=== PATIENT | female | born 1975 | race Caucasian/White ===

== ENCOUNTER 2017-01-27 17:43 | Outpatient (CLI) | payer BC ==
[2017-01-27] MEDS ORDERED: IOPAMIDOL-300 100 ML VIAL IVP ONE (18:51)
== END 2017-01-27 17:44 | disposition home or self-care (01) ==
DX: R42 Dizziness and giddiness (principal)
CPT/HCPCS: 70470; Q9967

== ENCOUNTER 2017-06-20 11:42 | Emergency (ER) | payer BC ==
[2017-06-20 13:13] LABS: BASOPHILS % (AUTO) 0.6 %; EOSINOPHILS % (AUTO) 0.1 %; HCT - HEMATOCRIT 40.3 % (37.0-47.0); HGB - HEMOGLOBIN 13.9 g/dL (12.0-16.0); LYMPHOCYTES # (AUTO) 1.5 10^3/uL (1.5-3.5); LYMPHOCYTES % (AUTO) 17.3 %; MEAN CORPUSCULAR HEMOGLOBIN 29.7 pg (27.0-31.0); MEAN CORPUSCULAR HGB CONC 34.5 g/dL (32.0-36.0); MEAN CORPUSCULAR VOLUME 86.1 fL (81.0-99.0); MEAN PLATELET VOLUME 8.6 fL (7.9-10.8); MONOCYTES # (AUTO) 0.5 10^3/uL (0.0-1.0); MONOCYTES % (AUTO) 5.5 %; NEUTROPHILS # (AUTO) 6.7 10^3/uL (1.5-6.6); NEUTROPHILS % (AUTO) 76.5 %; NUCLEATED RED BLOOD CELLS AUTO 0.1 /100WBC; RED BLOOD COUNT 4.68 10^6/uL (4.20-5.40); RED CELL DISTRIBUTION WIDTH 13.6 % (12.0-15.0); UNCORRECTED WHITE BLOOD COUNT 8.8 x10^3/uL; WHITE BLOOD COUNT 8.8 x10^3/uL (4.8-10.8)
[2017-06-20 13:28] LABS: ALBUMIN/GLOBULIN RATIO 1.5 (1.0-2.2); BILIRUBIN,TOTAL 0.5 mg/dL (0.2-1.0); CALCIUM 9.4 mg/dL (8.5-10.3); CREATININE 0.7 mg/dL (0.4-1.0); POTASSIUM 3.6 mmol/L (3.5-5.0); TOTAL PROTEIN 7.7 g/dL (6.7-8.2)
[2017-06-20] MEDS ORDERED: LORazepam 0.5 MG TABLET PO STA (15:14)
--- NOTE | 2017-06-20 15:51 | ED Physician Documentation ---
History of Present Illness - History obtained from History obtained from: Patient, Family - History of Present Illness Timing: How many weeks ago (3) <Guilherme May - Last Filed: 06/21/17 06:35> <Lupe Joy - Last Filed: 06/21/17 12:22> - Stated complaint Stated Complaint: MHE - Chief complaint Chief Complaint: MHE - Additonal information Additional information: 3 weeks of rupesh and no sleep for 40+ hours. (Guilherme May) hx from pt sent to ER by PMD to be admitted for mental health she has a hx of depression and bipolar per PMD records she states she feels extremely anxious and depressed, keeps a running tape in her head of all the mistakes she has made and people she has hurt, occasionally has visual hallucinations and has some suicidal ideation basically that it would be better if she fell asleep and never woke up denies SI denies auditory hallucinations also states she has cp an soa which she attributes to anxiety and ruq pain both since at least last night no fever cough leg swelling (Lupe Joy) Review of Systems Constitutional: denies: Fever, Chills Throat: denies: Sore throat Cardiac: reports: Chest pain / pressure Respiratory: reports: Dyspnea. denies: Cough GI: reports: Abdominal Pain (ruq). denies: Nausea, Vomiting Neurologic: denies: Generalized weakness Psychiatric: reports: Depressed, Suicidal, Hallucinations, Anxiety Endocrine: denies: Easy bruising / bleeding Immunocompromised: denies: Immunocompromised <Lupe Joy - Last Filed: 06/21/17 12:22> PD PAST MEDICAL HISTORY <Guilherme May - Last Filed: 06/21/17 06:35> - Social History Does the pt smoke?: No Smoking Status: Never smoker <Lupe Joy - Last Filed: 06/21/17 12:22> - Present Medications Home Medications: Ambulatory Orders Medication Instructions Recorded Confirmed Venlafaxine HCl [Venlafaxine HCl 06/20/17 ER] - Allergies Allergies/Adverse Reactions: Allergies Allergy/AdvReac Type Severity Reaction Status Date / Time No Known Drug Allergies Allergy Verified 06/20/17 11:47 PD ED PE NORMAL - Vitals Vital signs reviewed: Yes - General General: Alert and oriented X 3 - HEENT HEENT: PERRL - Neck Neck: Supple, no meningeal sign - Cardiac Cardiac: RRR - Respiratory Respiratory: No respiratory distress, Clear bilaterally - Abdomen Abdomen: Soft, Other (mild ruq TTP ? murphys (hurts but does not pause breathing )) - Derm Derm: Normal color - Extremities Extremities: No deformity, No edema, No calf tenderness / cord - Neuro Neuro: Alert and oriented X 3, No motor deficit - Psych Psych: Normal mood <Lupe Joy W - Last Filed: 06/21/17 12:22> Results - Rads (name of study) CXR Radiology: See rad report (no acute) abd sono Radiology: See rad report (no gallstones or acute ana maría) <Lupe Joy W - Last Filed: 06/21/17 12:22> - Vitals Vitals: Vital Signs - 24 hr 06/20/17 06/20/17 06/21/17 16:19 17:50 02:35 Temperature 36.3 C L 36.5 C 36.6 C Heart Rate 91 82 79 Respiratory 15 15 16 Rate Blood Pressure 146/104 H 153/41 H 141/77 H O2 Saturation 97 98 98 06/21/17 06:56 Temperature Heart Rate 74 Respiratory 16 Rate Blood Pressure 133/78 H O2 Saturation 99 Oxygen O2 Source Room air - Labs Labs: Laboratory Tests 06/20/17 06/20/17 06/20/17 13:05 13:05 13:05 WBC 8.8 RBC 4.68 Hgb 13.9 Hct 40.3 MCV 86.1 MCH 29.7 MCHC 34.5 RDW 13.6 Plt Count 283 MPV 8.6 Neut # 6.7 H Lymph # 1.5 [place] # 0.5 Eos # 0.0 Baso # 0.0 Absolute Nucleated RBC 0.01 Nucleated RBCs 0.1 Sodium 137 Potassium 3.6 Chloride 101 Carbon Dioxide 25 Anion Gap 11.0 BUN 11 Creatinine 0.7 Estimated GFR (MDRD) 91 Glucose 138 H Calcium 9.4 Total Bilirubin 0.5 AST 24 ALT 27 Alkaline Phosphatase 61 Troponin I Total Protein 7.7 Albumin 4.6 Globulin 3.1 Albumin/Globulin Ratio 1.5 Lipase 32 TSH 1.42 Urine Color Urine Clarity Urine pH Ur Specific [place] Urine Protein Urine Glucose (UA) Urine Ketones Urine Occult Blood Urine Nitrite Urine Bilirubin Urine Urobilinogen Ur Leukocyte Esterase Ur Microscopic Review Urine Culture Comments Urine HCG, Qual Urine Opiates Screen Ur Oxycodone Screen Urine Methadone Screen Ur Propoxyphene Screen Ur Barbiturates Screen Ur Tricyclics Screen Ur Phencyclidine Scrn Ur Amphetamine Screen U Methamphetamines Scrn U Benzodiazepines Scrn Urine Cocaine Screen U Cannabinoids Screen Ethyl Alcohol 06/20/17 06/20/17 06/20/17 14:58 15:30 17:11 WBC RBC Hgb Hct MCV MCH MCHC RDW Plt Count MPV Neut # Lymph # [place] # Eos # Baso # Absolute Nucleated RBC Nucleated RBCs Sodium Potassium Chloride Carbon Dioxide Anion Gap BUN Creatinine Estimated GFR (MDRD) Glucose Calcium Total Bilirubin AST ALT Alkaline Phosphatase Troponin I 0.04 Total Protein Albumin Globulin Albumin/Globulin Ratio Lipase TSH Urine Color LT. YELLOW Urine Clarity CLEAR Urine pH 6.0 Ur Specific [place] <=1.005 Urine Protein NEGATIVE Urine Glucose (UA) NEGATIVE Urine Ketones TRACE Urine Occult Blood NEGATIVE Urine Nitrite NEGATIVE Urine Bilirubin NEGATIVE Urine Urobilinogen 0.2 (NORMAL) Ur Leukocyte Esterase NEGATIVE Ur Microscopic Review NOT INDICATED Urine Culture Comments NOT INDICATED Urine HCG, Qual Urine Opiates Screen NEGATIVE Ur Oxycodone Screen NEGATIVE Urine Methadone Screen NEGATIVE Ur Propoxyphene Screen NEGATIVE Ur Barbiturates Screen NEGATIVE Ur Tricyclics Screen NEGATIVE Ur Phencyclidine Scrn NEGATIVE Ur Amphetamine Screen NEGATIVE U Methamphetamines Scrn NEGATIVE U Benzodiazepines Scrn NEGATIVE Urine Cocaine Screen NEGATIVE U Cannabinoids Screen NEGATIVE Ethyl Alcohol < 5.0 06/20/17 17:11 WBC RBC Hgb Hct MCV MCH MCHC RDW Plt Count MPV Neut # Lymph # [place] # Eos # Baso # Absolute Nucleated RBC Nucleated RBCs Sodium Potassium Chloride Carbon Dioxide Anion Gap BUN Creatinine Estimated GFR (MDRD) Glucose Calcium Total Bilirubin AST ALT Alkaline Phosphatase Troponin I Total Protein Albumin Globulin Albumin/Globulin Ratio Lipase TSH Urine Color Urine Clarity Urine pH Ur Specific [place] <=1.005 Urine Protein Urine Glucose (UA) Urine Ketones Urine Occult Blood Urine Nitrite Urine Bilirubin Urine Urobilinogen Ur Leukocyte Esterase Ur Microscopic Review Urine Culture Comments Urine HCG, Qual NEGATIVE Urine Opiates Screen Ur Oxycodone Screen Urine Methadone Screen Ur Propoxyphene Screen Ur Barbiturates Screen Ur Tricyclics Screen Ur Phencyclidine Scrn Ur Amphetamine Screen U Methamphetamines Scrn U Benzodiazepines Scrn Urine Cocaine Screen U Cannabinoids Screen Ethyl Alcohol PD MEDICAL DECISION MAKING - ED course Complexity details: reviewed old records, reviewed results, re-evaluated patient , considered differential, d/w patient, d/w family <Guilherme May - Last Filed: 06/21/17 06:35> <Lupe Joy - Last Filed: 06/21/17 12:22> - ED course ED course: 41-year-old female with bipolar disorder has had rupesh and she has had no sleep for the past 48 hours. Her care was turned over to me by Dr. Ba at the end of her shift and the patient is awaiting evaluation by the social science manager for inpatient psychiatric treatment that is recommended by the tele-psych provider. Here in the emergency room she is requesting something for sleep and she is given zyprexa 5mg IM and she is able to doze off but this is short lived and she requires a second dose. Her care is turned back over to Dr. Cano at the end of my shift with the anticipation of evaluation by social work for in- patient treatment. The patient does need treatment and she is voluntary. ( Guilherme May) pt medically clear - usual labs + CXR and trop 2/2 chest pain and ruq sono 2/2 ruq pain all fine by the time pt medically clear social work not available requested telepsych eval at 1900 [id number] consult done - awaiting report - per pt and SO telepsych rec inpt tx and will make med rec - advised pt in that case she will board in ER overnight until SW available in AM to assist with placement care turned over to night EMP and i will be back in AM to resume care and placement efforts assumed care again 06/21 0700 telepsych recommended inpt voluntary admit SW Diane aware and working on placement SW placed pt at [facility] - she and insisted on travelling POV not BLS and signed AMA and departed for [facility] (Lupe Joy) Departure <Guilherme May - Last Filed: 06/21/17 06:35> <Lupe Joy - Last Filed: 06/21/17 12:22> - Departure Disposition: 02 Transfer Acute Care Hosp Clinical Impression: Bipolar affective disorder Qualifiers: Active/Remission status: currently active Current bipolar episode type: mixed Current episode severity: severe Psychotic features: without psychotic features Qualified Code(s): F31.63 - Bipolar disorder, current episode mixed, severe, without psychotic features
--- NOTE | 2017-06-20 16:38 | XRAY Preliminary Report ---
Exam: XR Chest 1 View IMPRESSION: Normal single view chest. [facility] SITE ID: [id number]
--- NOTE | 2017-06-20 16:40 | XRAY Report ---
EXAM: CHEST RADIOGRAPHY EXAM DATE: 06/20/2017 04:15 PM. CLINICAL HISTORY: Chest pain and shortness of breath. Anxiety attacks. COMPARISON: Chest radiography from 12/14/2010. TECHNIQUE: 1 view. FINDINGS: Lungs/Pleura: No focal opacities evident. No pleural effusion. No pneumothorax. Mediastinum: Within exam limitations, cardiomediastinal contour is normal. Other: None. IMPRESSION: Normal single view chest. [facility] Referring Provider Line: [phone] SITE ID: [id number]
--- NOTE | 2017-06-20 16:48 | Ultrasound Preliminary Report ---
Exam: US Abdomen Limited IMPRESSION: 1. Limited exam due to patient's inability to hold her breath momentarily during imaging and patient imaging characteristics. 2. Increased liver echotexture suggestive of fatty infiltration. 3. No evidence of cholelithiasis or acute cholecystitis. [facility] SITE ID: [id number]
--- NOTE | 2017-06-20 16:51 | Ultrasound Report ---
EXAM: ABDOMEN ULTRASOUND LIMITED, RUQ EXAM DATE: 06/20/2017 04:23 PM. CLINICAL HISTORY: Right upper quadrant pain. COMPARISON: None. TECHNIQUE: Real-time scanning was performed with static images obtained. FINDINGS: The exam is technically limited due to the patient's inability to hold her breath momentarily during imaging. Liver: Increased echotexture suggestive of fatty infiltration. 15.6 cm. Main portal vein flow: Hepato petal. Gallbladder: Normal. No stones, wall thickening, or sonographic Zavala's sign. Biliary System: CBD measures 5.1 mm. No intrahepatic or extrahepatic ductal dilatation. Other: Right kidney is unremarkable. No hydronephrosis. IMPRESSION: 1. Limited exam due to patient's inability to hold her breath momentarily during imaging and patient imaging characteristics. 2. Increased liver echotexture suggestive of fatty infiltration. 3. No evidence of cholelithiasis or acute cholecystitis. [facility] Referring Provider Line: [phone] SITE ID: [id number]
[2017-06-20] MEDS ORDERED: LORazepam 0.5 MG TABLET ONE (17:24)
[2017-06-20 17:48] LABS: BILIRUBIN,URINE NEGATIVE (NEGATIVE)
[2017-06-20 17:52] LABS: UA CHARGE (STRIP ONLY) YES; UR CULTURE IF IND NOT INDICATED
[2017-06-20 17:53] LABS: HCG UR QUAL NEGATIVE
--- NOTE | 2017-06-20 20:41 | ED Physician Documentation ---
PD HPI MHE - Stated complaint Stated Complaint: MHE - Chief complaint Chief Complaint: MHE - History obtained from History obtained from: Patient, Family - History of Present Illness Primary symptom: Suicidal ideation, Depression, Manic, Anxiety Contributing factors: Family, Work Similar symptoms before: Diagnosis - Additional information Additional information: History of Present Illness: Pt seen via televideo with the help on onsite staff. Pt is a 41 yo female who reports a hx of manic- depressive disorder. Pt presents to the ED, accompanied by her and referred by her outpt provider seeking inpt stabilization. Pt reports a several week period of instability. Reports a recent period of manic like activity. Now over the past 3 days with significantly increased depressive and anxiety sxs. States feels depressed, anxious, helpless and hopeless. Sates she has not been sleeping nor eating appropriately. States she has been experiencing negative racing thoughts, inability to focus. States also having suicidal thoughts, no specific plan however reports that the thoughts are comforting to her. States she had to leave work on Tuesday as she was not functioning. Pts was present during the evaluation. Reports that he feels she has not been doing well over the past few days. States he stayed home today from work as he was concerned about her. States she has not slept in 40+ hours. States she is not focusing, has been zoning out in a zombie like manner. States she has been tearful and reports no specific new trigger. States he is worried about her negative thoughts. On ROS, pt denies AVHs, delusions nor HI. She reports continued SI, no specific plan however thoughts are comforting to her at this time. During the assessment she exhibited significant difficulty communicating her thoughts. With significant blocking. She appeared to be in distress related to her current mental state. She admits she is not functioning, not able to currently care for herself nor ADLs. She presents as a danger to herself due to her ongoing suicidal thoughts. She requires inpt psychiatric admission for safety, stabilization and treatment. Pt is voluntary for inpt treatment. Inpt prior admission Outpt compliance with medications Rxed by her PCP SAttempts: denies Medical History: see chart Medications & Freq: see chart Allergies: see chart Substance Use Hx: denies Forensic Hx: not reported Access to weapons/guns: denies Family Psychiatric hx: unknown Mental Status Exam: Appearance and attire: Dressed in hospital attire Attitude and behavior: cooperative Affect and mood: depressed / constricted Association and thought processes: + blocking Thought content: denies delusions. Denies HI. + SI Perceptual: Denies AVHs Sensorium, memory, and orientation AxOx3 Insight and judgment: poor impaired Diagnosis: Unspecified Bipolar And Related Disorder Recommendations: Pt requires acute inpt psychiatric admission For safety, stabilization and treatment Pt is voluntary for inpt treatment. PD PAST MEDICAL HISTORY - Present Medications Home Medications: Ambulatory Orders Medication Instructions Recorded Confirmed Venlafaxine HCl [Venlafaxine HCl 06/20/17 ER] - Allergies Allergies/Adverse Reactions: Allergies Allergy/AdvReac Type Severity Reaction Status Date / Time No Known Drug Allergies Allergy Verified 06/20/17 11:47 - Social History Does the pt smoke?: No Smoking Status: Never smoker Results - Vitals Vitals: Vital Signs - 24 hr 06/20/17 06/20/17 06/20/17 11:48 16:19 17:50 Temperature 36.0 C L 36.3 C L 36.5 C Heart Rate 80 91 82 Respiratory 18 15 15 Rate Blood Pressure 147/94 H 146/104 H 153/41 H O2 Saturation 99 97 98 Oxygen O2 Source Room air - Labs Labs: Laboratory Tests 06/20/17 06/20/17 06/20/17 13:05 13:05 13:05 WBC 8.8 RBC 4.68 Hgb 13.9 Hct 40.3 MCV 86.1 MCH 29.7 MCHC 34.5 RDW 13.6 Plt Count 283 MPV 8.6 Neut # 6.7 H Lymph # 1.5 [place] # 0.5 Eos # 0.0 Baso # 0.0 Absolute Nucleated RBC 0.01 Nucleated RBCs 0.1 Sodium 137 Potassium 3.6 Chloride 101 Carbon Dioxide 25 Anion Gap 11.0 BUN 11 Creatinine 0.7 Estimated GFR (MDRD) 91 Glucose 138 H Calcium 9.4 Total Bilirubin 0.5 AST 24 ALT 27 Alkaline Phosphatase 61 Troponin I Total Protein 7.7 Albumin 4.6 Globulin 3.1 Albumin/Globulin Ratio 1.5 Lipase 32 TSH 1.42 Urine Color Urine Clarity Urine pH Ur Specific [place] Urine Protein Urine Glucose (UA) Urine Ketones Urine Occult Blood Urine Nitrite Urine Bilirubin Urine Urobilinogen Ur Leukocyte Esterase Ur Microscopic Review Urine Culture Comments Urine HCG, Qual Urine Opiates Screen Ur Oxycodone Screen Urine Methadone Screen Ur Propoxyphene Screen Ur Barbiturates Screen Ur Tricyclics Screen Ur Phencyclidine Scrn Ur Amphetamine Screen U Methamphetamines Scrn U Benzodiazepines Scrn Urine Cocaine Screen U Cannabinoids Screen Ethyl Alcohol 06/20/17 06/20/17 06/20/17 14:58 15:30 17:11 WBC RBC Hgb Hct MCV MCH MCHC RDW Plt Count MPV Neut # Lymph # [place] # Eos # Baso # Absolute Nucleated RBC Nucleated RBCs Sodium Potassium Chloride Carbon Dioxide Anion Gap BUN Creatinine Estimated GFR (MDRD) Glucose Calcium Total Bilirubin AST ALT Alkaline Phosphatase Troponin I 0.04 Total Protein Albumin Globulin Albumin/Globulin Ratio Lipase TSH Urine Color LT. YELLOW Urine Clarity CLEAR Urine pH 6.0 Ur Specific [place] <=1.005 Urine Protein NEGATIVE Urine Glucose (UA) NEGATIVE Urine Ketones TRACE Urine Occult Blood NEGATIVE Urine Nitrite NEGATIVE Urine Bilirubin NEGATIVE Urine Urobilinogen 0.2 (NORMAL) Ur Leukocyte Esterase NEGATIVE Ur Microscopic Review NOT INDICATED Urine Culture Comments NOT INDICATED Urine HCG, Qual Urine Opiates Screen NEGATIVE Ur Oxycodone Screen NEGATIVE Urine Methadone Screen NEGATIVE Ur Propoxyphene Screen NEGATIVE Ur Barbiturates Screen NEGATIVE Ur Tricyclics Screen NEGATIVE Ur Phencyclidine Scrn NEGATIVE Ur Amphetamine Screen NEGATIVE U Methamphetamines Scrn NEGATIVE U Benzodiazepines Scrn NEGATIVE Urine Cocaine Screen NEGATIVE U Cannabinoids Screen NEGATIVE Ethyl Alcohol < 5.0 06/20/17 17:11 WBC RBC Hgb Hct MCV MCH MCHC RDW Plt Count MPV Neut # Lymph # [place] # Eos # Baso # Absolute Nucleated RBC Nucleated RBCs Sodium Potassium Chloride Carbon Dioxide Anion Gap BUN Creatinine Estimated GFR (MDRD) Glucose Calcium Total Bilirubin AST ALT Alkaline Phosphatase Troponin I Total Protein Albumin Globulin Albumin/Globulin Ratio Lipase TSH Urine Color Urine Clarity Urine pH Ur Specific [place] <=1.005 Urine Protein Urine Glucose (UA) Urine Ketones Urine Occult Blood Urine Nitrite Urine Bilirubin Urine Urobilinogen Ur Leukocyte Esterase Ur Microscopic Review Urine Culture Comments Urine HCG, Qual NEGATIVE Urine Opiates Screen Ur Oxycodone Screen Urine Methadone Screen Ur Propoxyphene Screen Ur Barbiturates Screen Ur Tricyclics Screen Ur Phencyclidine Scrn Ur Amphetamine Screen U Methamphetamines Scrn U Benzodiazepines Scrn Urine Cocaine Screen U Cannabinoids Screen Ethyl Alcohol
[2017-06-20] MEDS ORDERED: OLANZapine 10 MG VIAL IM STA (23:32)
[2017-06-21] MEDS ORDERED: OLANZapine 10 MG VIAL IM STA (02:45)
[2017-06-21] MEDS ORDERED: OLANZapine 10 MG VIAL IM ONE ×2 (02:49)
[2017-06-21 12:39] VITALS: BP 136/64
== END 2017-06-21 12:00 | disposition short-term general hospital (02) ==
LOC: ED 11:42
DX: F31.63 Bipolar disorder, current episode mixed, severe, without psychotic features (principal); R45.851 Suicidal ideations
CPT/HCPCS: 36415; 71010; 76705; 80053; 80306; 80320; 81003; 81025; 83690; 84443; 84484; 85025; 96372; 99284; A9270; G0425; 81001; 87086; 99283

== ENCOUNTER 2017-07-28 13:27 | Outpatient (CLI) | payer BC ==
--- NOTE | 2017-07-29 16:18 | Mammography Report ---
DIGITAL BILATERAL SCREENING MAMMOGRAM: 07/28/2017 COMPARISON: Mammogram of 06/14/2014. INDICATION: Screening mammography. TECHNIQUE: Routine CC and MLO projections were obtained of the breasts. FINDINGS: Parenchymal tissue within both breasts is heterogeneously dense, which may lower the sensi tivity of mammography; however, there are no dominant masses, suspicious microcalcifications, or seco ndary signs of malignancy. In comparison to the previous studies, there are no significant changes. ASSESSMENT: NO MAMMOGRAPHIC EVIDENCE OF MALIGNANCY. NO SIGNIFICANT INTERVAL CHANGES. RECOMMENDATION: Screening mammography is recommended annually. BIRADS category 1 - negative. STANDARD QUALIFYING STATEMENTS 1. This examination was reviewed with the aid of Computed-Aided Detection (CAD). 2. A negative or benign imaging report should not delay biopsy if clinically suspicious findings are present. Consider surgical consultation if warranted. More than 5% of cancers are not identified by i maging. 3. Dense breasts may obscure an underlying neoplasm. JOB #: [id number] EXT JOB #:[id number]
== END 2017-07-28 13:28 | disposition home or self-care (01) ==
LOC: DI 13:27
PROVIDERS: ATTEND Physician Assistant Medical
DX: Z12.31 Encounter for screening mammogram for malignant neoplasm of breast (principal)
CPT/HCPCS: 77067

== ENCOUNTER 2017-08-18 07:01 | Outpatient (CLI) | payer BC ==
[2017-08-18 07:38] LABS: BASOPHILS % (AUTO) 0.2 %; EOSINOPHILS # (AUTO) 0.1 10^3/uL (0.0-0.7); EOSINOPHILS % (AUTO) 2.7 %; HCT - HEMATOCRIT 38.9 % (37.0-47.0); HGB - HEMOGLOBIN 13.5 g/dL (12.0-16.0); LYMPHOCYTES # (AUTO) 1.4 10^3/uL (1.5-3.5); LYMPHOCYTES % (AUTO) 28.7 %; MEAN CORPUSCULAR HEMOGLOBIN 30.3 pg (27.0-31.0); MEAN CORPUSCULAR HGB CONC 34.8 g/dL (32.0-36.0); MEAN CORPUSCULAR VOLUME 87.2 fL (81.0-99.0); MEAN PLATELET VOLUME 8.5 fL (7.9-10.8); MONOCYTES # (AUTO) 0.4 10^3/uL (0.0-1.0); MONOCYTES % (AUTO) 8.1 %; NEUTROPHILS # (AUTO) 2.9 10^3/uL (1.5-6.6); NEUTROPHILS % (AUTO) 60.3 %; RED BLOOD COUNT 4.46 10^6/uL (4.20-5.40); RED CELL DISTRIBUTION WIDTH 13.1 % (12.0-15.0); UNCORRECTED WHITE BLOOD COUNT 4.8 x10^3/uL; WHITE BLOOD COUNT 4.8 x10^3/uL (4.8-10.8)
[2017-08-18 07:44] LABS: ALBUMIN/GLOBULIN RATIO 1.3 (1.0-2.2); BILIRUBIN,TOTAL 0.3 mg/dL (0.2-1.0); BUN - BLOOD UREA NITROGEN 16 mg/dL (6-20); CARBON DIOXIDE - CO2 26 mmol/L (21-32); CHLORIDE 100 mmol/L (101-111); CHOL/HDL RATIO 4.4 (<4.4); CHOLESTEROL 169 mg/dL; CREATININE 0.8 mg/dL (0.4-1.0); GFR - MDRD 78 (>89); GLUCOSE 108 mg/dL (70-100); HDL CHOLESTEROL 38 mg/dL; LDL/HDL RATIO 2.9 (<4.4); POTASSIUM 4.2 mmol/L (3.5-5.0); SODIUM 136 mmol/L (135-145); TOTAL PROTEIN 7.2 g/dL (6.7-8.2); TRIGLYCERIDES 105 mg/dL; VLDL CHOLESTEROL 21 mg/dL
== END 2017-08-18 07:02 | disposition home or self-care (01) ==
LOC: LAB 07:01
PROVIDERS: ATTEND Physician Assistant Medical
DX: Z00.00 Encounter for general adult medical examination without abnormal findings (principal); F31.60 Bipolar disorder, current episode mixed, unspecified; Z79.899 Other long term (current) drug therapy
CPT/HCPCS: 36415; 80053; 80061; 84443; 85025

== ENCOUNTER 2018-02-20 06:46 | Outpatient (CLI) | payer BC ==
[2018-02-20 07:33] LABS: ALBUMIN 4.3 g/dL (3.2-5.5); ALBUMIN/GLOBULIN RATIO 1.4 (1.0-2.2); ALKALINE PHOSPHATASE 59 IU/L (42-121); ALT ALANINE AMINOTRANSFERASE 26 IU/L (10-60); AST ASPARTATE AMINOTRANSFERASE 24 IU/L (10-42); BILIRUBIN,TOTAL 1.1 mg/dL (0.2-1.0); BUN - BLOOD UREA NITROGEN 16 mg/dL (6-20); CALCIUM 9.1 mg/dL (8.5-10.3); CARBON DIOXIDE - CO2 26 mmol/L (21-32); CHLORIDE 102 mmol/L (101-111); CHOL/HDL RATIO 3.9 (<4.4); CHOLESTEROL 229 mg/dL; CREATININE 0.7 mg/dL (0.4-1.0); GFR - MDRD 91 (>89); GLUCOSE 114 mg/dL (70-100); HDL CHOLESTEROL 58 mg/dL; LDL CHOLESTEROL,CALCULATED 156 mg/dL; LDL/HDL RATIO 2.7 (<4.4); SODIUM 137 mmol/L (135-145); TOTAL PROTEIN 7.3 g/dL (6.7-8.2); VLDL CHOLESTEROL 15 mg/dL
== END 2018-02-20 06:47 | disposition home or self-care (01) ==
LOC: LAB 06:46
PROVIDERS: ATTEND Physician Assistant Medical
DX: F31.60 Bipolar disorder, current episode mixed, unspecified (principal); Z79.899 Other long term (current) drug therapy
CPT/HCPCS: 36415; 80053; 80061; 80299; 81599; 83721

== ENCOUNTER 2018-05-06 13:36 | Emergency (ER) | payer BC ==
[2018-05-06] MEDS ORDERED: BUFFERED LIDOCAINE 10 ML SYRINGE SUBQ STA (13:42)
[2018-05-06] MEDS ORDERED: TETANUS/DIPHTHERIA/PERTUSSIS 0.5 ML SYRINGE IM ONE (13:42)
[2018-05-06 13:43] VITALS: BP 130/84
--- NOTE | 2018-05-06 13:45 | ED Physician Documentation ---
PD HPI UPPER EXT INJURY - Stated complaint Stated Complaint: L FINGERS LAC - Chief complaint Chief Complaint: Laceration - History obtained from History obtained from: Patient - History of Present Illness Location: Left (Right-handed woman with tetanus greater than 5 years ago cut her left fingers, each 1 of them, by contacting a weedeater while working just prior to arrival at home.) Review of Systems Constitutional: denies: Fever, Chills Cardiac: denies: Chest pain / pressure, Palpitations Respiratory: denies: Dyspnea, Cough GI: denies: Abdominal Pain PD PAST MEDICAL HISTORY - Present Medications Home Medications: Ambulatory Orders Medication Instructions Recorded Confirmed Cephalexin [Keflex] 500 mg PO QID #20 capsule 05/06/18 HYDROcod/ACETAM 5/325 [[place] 5/325] 1 - 2 ea PO Q6H PRN #15 tablet 05/06/18 QUEtiapine [SEROquel] 150 mg ORAL BID 05/06/18 05/06/18 - Allergies Allergies/Adverse Reactions: Allergies Allergy/AdvReac Type Severity Reaction Status Date / Time No Known Drug Allergies Allergy Verified 05/06/18 13:43 - Social History Does the pt smoke?: No Smoking Status: Never smoker PD ED PE NORMAL - Vitals Vital signs reviewed: Yes - General General: Alert and oriented X 3, No acute distress - Extremities Extremities: Other (Left hand: She has lacerations of each of the 5 digits, on the thumb it is on the radial side of the palmar surface just proximal to the interphalangeal joint 1 cm, NVI at the tip. On the second through fourth digits she has approximate 1 cm lacerations of each of the digits at the level of the mid phalanx on the flexor side. NVI at all the tips.) - Neuro Neuro: Alert and oriented X 3, Normal speech - Psych Psych: Normal mood, Normal affect Results - Vitals Vitals: Vital Signs - 24 hr 05/06/18 13:40 Temperature 35.5 C L Heart Rate 106 H Respiratory 18 Rate Blood Pressure 130/84 H O2 Saturation 98 Oxygen O2 Source Room air Procedures - Laceration (location) Left hand Length in cm: 8 Wound type: Other (She had stellate lacerations of each of the 5 digits on the palmar surface, flexor tendon function was intact tested individually in each.) Anesthesia: Lidocaine 1%, With bicarb Wound Preparation: Hibiclens, Irrigated copiously NS Skin layer closure: Nylon, Interrupted, Size #-0 - enter number (4-0), Sutures - enter # (5 sutures in the thumb, 5 sutures in the Second finger, 7 sutures in the third finger, 4 sutures in the ring finger, 2 sutures in the pinky.) Other: Tetanus booster given Complexity: Simple PD MEDICAL DECISION MAKING - Sepsis Event Vital Signs: Vital Signs - 24 hr 05/06/18 13:40 Temperature 35.5 C L Heart Rate 106 H Respiratory 18 Rate Blood Pressure 130/84 H O2 Saturation 98 Oxygen O2 Source Room air Departure - Departure Disposition: Home, Self Care Clinical Impression: Laceration Condition: Good Record reviewed to determine appropriate education?: Yes Instructions: ED Laceration Hand Prescriptions: Cephalexin [Keflex] 500 mg PO QID #20 capsule HYDROcod/ACETAM 5/325 [[place] 5/325] 1 - 2 ea PO Q6H PRN #15 tablet PRN Reason: Pain Comments: Come back for any signs of infection which would include: Redness, swelling, drainage, increased pain, or fevers. Follow-up with your physician in 14 days for suture removal. Your blood pressure was elevated today on check into the emergency department. This does not mean that you have hypertension, it is a common phenomenon to come to the emergency department and have elevated blood pressure. I recommend that you see your primary care physician within the week to have it rechecked when you are feeling better.
[2018-05-06] MEDS ORDERED: BACITRACIN OINT TOP ONE (14:34)
== END 2018-05-06 14:50 | disposition home or self-care (01) ==
LOC: ED 13:36
DX: S61.211A Laceration without foreign body of left index finger without damage to nail, initial encounter (principal); S61.213A Laceration without foreign body of left middle finger without damage to nail, initial encounter; S61.215A Laceration without foreign body of left ring finger without damage to nail, initial encounter; S61.217A Laceration without foreign body of left little finger without damage to nail, initial encounter; S61.012A Laceration without foreign body of left thumb without damage to nail, initial encounter; R03.0 Elevated blood-pressure reading, without diagnosis of hypertension; Z23 Encounter for immunization; W29.3XXA Contact with powered garden and outdoor hand tools and machinery, initial encounter; Y93.89 Activity, other specified
CPT/HCPCS: 12004; 90471; 90715; 99283; A9270

== ENCOUNTER 2018-06-22 08:38 | Outpatient (CLI) | payer BC ==
[2018-06-22 11:05] LABS: LITHIUM 0.69 mmol/L
== END 2018-06-22 08:39 | disposition home or self-care (01) ==
LOC: LAB 08:38
PROVIDERS: ATTEND Psychiatry & Neurology Psychiatry
DX: Z51.81 Encounter for therapeutic drug level monitoring (principal)
CPT/HCPCS: 36415; 80178; 84443

== ENCOUNTER 2018-08-15 08:07 | Outpatient (CLI) | payer BC ==
[2018-08-15 09:05] LABS: BASOPHILS # (AUTO) 0.1 10^3/uL (0.0-0.1); BASOPHILS % (AUTO) 0.6 %; EOSINOPHILS # (AUTO) 1.1 10^3/uL (0.0-0.7); EOSINOPHILS % (AUTO) 12.5 %; LYMPHOCYTES # (AUTO) 1.9 10^3/uL (1.5-3.5); LYMPHOCYTES % (AUTO) 22.5 %; MEAN CORPUSCULAR HEMOGLOBIN 31.2 pg (27.0-31.0); MEAN CORPUSCULAR HGB CONC 35.4 g/dL (32.0-36.0); MEAN CORPUSCULAR VOLUME 87.9 fL (81.0-99.0); MEAN PLATELET VOLUME 8.7 fL (7.9-10.8); MONOCYTES # (AUTO) 0.4 10^3/uL (0.0-1.0); MONOCYTES % (AUTO) 5.2 %; NEUTROPHILS # (AUTO) 5.1 10^3/uL (1.5-6.6); NEUTROPHILS % (AUTO) 59.2 %; PLT - PLATELET COUNT 366 10^3/uL (130-450); RED BLOOD COUNT 4.16 10^6/uL (4.20-5.40); RED CELL DISTRIBUTION WIDTH 15.2 % (12.0-15.0); WHITE BLOOD COUNT 8.6 x10^3/uL (4.8-10.8)
[2018-08-15 09:25] LABS: ALBUMIN/GLOBULIN RATIO 1.3 (1.0-2.2); ALKALINE PHOSPHATASE 61 IU/L (42-121); ALT ALANINE AMINOTRANSFERASE 17 IU/L (10-60); AST ASPARTATE AMINOTRANSFERASE 19 IU/L (10-42); BUN - BLOOD UREA NITROGEN 18 mg/dL (6-20); CARBON DIOXIDE - CO2 26 mmol/L (21-32); CHLORIDE 108 mmol/L (101-111); CHOL/HDL RATIO 3.4 (<4.4); CHOLESTEROL 170 mg/dL; CREATININE 0.7 mg/dL (0.4-1.0); GFR - MDRD 91 (>89); GLUCOSE 105 mg/dL (70-100); HDL CHOLESTEROL 50 mg/dL; LDL CHOLESTEROL,CALCULATED 108 mg/dL; LDL/HDL RATIO 2.2 (<4.4); SODIUM 140 mmol/L (135-145); VLDL CHOLESTEROL 12 mg/dL
[2018-08-15 09:56] LABS: LITHIUM 0.72 mmol/L
[2018-08-15 12:57] LABS: HB2 TOTAL 13.5 g/dL; HEMOGLOBIN A1C 0.34 g/dL; HEMOGLOBIN A1C % 4.5 % (4.6-6.2)
== END 2018-08-15 08:08 | disposition home or self-care (01) ==
LOC: LAB 08:07
PROVIDERS: ATTEND Physician Assistant Medical
DX: Z00.00 Encounter for general adult medical examination without abnormal findings (principal); R73.9 Hyperglycemia, unspecified; Z79.899 Other long term (current) drug therapy; E78.2 Mixed hyperlipidemia; F31.63 Bipolar disorder, current episode mixed, severe, without psychotic features; Z51.81 Encounter for therapeutic drug level monitoring
CPT/HCPCS: 36415; 80053; 80061; 80178; 83036; 83721; 84443; 85025

== ENCOUNTER 2018-11-27 07:27 | Outpatient (CLI) | payer BC ==
[2018-11-27 08:10] LABS: HB2 TOTAL 14.2 g/dL; HEMOGLOBIN A1C 0.3 g/dL; HEMOGLOBIN A1C % 4.1 % (4.6-6.2)
== END 2018-11-27 07:28 ==
LOC: LAB 07:27
PROVIDERS: ATTEND Physician Assistant Medical
DX: R73.9 Hyperglycemia, unspecified (principal); Z79.899 Other long term (current) drug therapy
CPT/HCPCS: 36415; 82947; 83036

== ENCOUNTER 2019-11-02 07:41 | Outpatient (CLI) | payer BC ==
[2019-11-02 08:12] LABS: CREATININE 0.6 mg/dL (0.4-1.0)
[2019-11-02 09:07] LABS: LITHIUM 1.02 mmol/L
[2019-11-02 09:09] LABS: HB2 TOTAL 13.6 g/dL; HEMOGLOBIN A1C 0.48 g/dL; HEMOGLOBIN A1C % 5.4 % (4.6-6.2)
== END 2019-11-02 07:42 | disposition home or self-care (01) ==
LOC: LAB 07:41
PROVIDERS: ATTEND Psychiatry & Neurology Psychiatry
DX: F31.78 Bipolar disorder, in full remission, most recent episode mixed (principal); Z51.81 Encounter for therapeutic drug level monitoring; Z79.899 Other long term (current) drug therapy; E16.2 Hypoglycemia, unspecified
CPT/HCPCS: 36415; 80048; 80178; 83036; 84443

== ENCOUNTER 2020-11-20 07:50 | Outpatient (CLI) | payer BC ==
[2020-11-20 08:33] LABS: ALBUMIN 4.1 g/dL (3.2-5.5); ALBUMIN/GLOBULIN RATIO 1.4 (1.0-2.2); ALKALINE PHOSPHATASE 55 IU/L (42-121); ALT ALANINE AMINOTRANSFERASE 32 IU/L (10-60); AST ASPARTATE AMINOTRANSFERASE 19 IU/L (10-42); BILIRUBIN,TOTAL 0.7 mg/dL (0.2-1.0); BUN - BLOOD UREA NITROGEN 12 mg/dL (6-20); CALCIUM 9.1 mg/dL (8.5-10.3); CARBON DIOXIDE - CO2 26 mmol/L (21-32); CHLORIDE 105 mmol/L (101-111); CHOL/HDL RATIO 3.8 (<4.4); CHOLESTEROL 199 mg/dL; CREATININE 0.7 mg/dL (0.4-1.0); GLUCOSE 115 mg/dL (70-100); HDL CHOLESTEROL 53 mg/dL; LDL CHOLESTEROL,CALCULATED 118 mg/dL; LDL/HDL RATIO 2.2 (<4.4); TOTAL PROTEIN 7.1 g/dL (6.7-8.2); VLDL CHOLESTEROL 28 mg/dL
[2020-11-20 09:09] LABS: LITHIUM 0.64 mmol/L
[2020-11-20 14:50] LABS: HEMOGLOBIN A1c% 5.5 % (4.27-6.07)
== END 2020-11-20 07:51 | disposition home or self-care (01) ==
LOC: LAB 07:50
PROVIDERS: ATTEND Psychiatry & Neurology Psychiatry
DX: E78.00 Pure hypercholesterolemia, unspecified (principal); F31.78 Bipolar disorder, in full remission, most recent episode mixed; Z51.81 Encounter for therapeutic drug level monitoring; Z79.899 Other long term (current) drug therapy
CPT/HCPCS: 36415; 80053; 80061; 80178; 83036; 83721; 84443

== ENCOUNTER 2022-06-27 10:18 | Emergency (ER) | payer BC ==
[2022-06-27 10:51] LABS: BASOPHILS % (AUTO) 0.3 %; EOSINOPHILS # (AUTO) 0.2 10^3/uL (0.0-0.7); EOSINOPHILS % (AUTO) 3.3 %; HCT - HEMATOCRIT 40.9 % (37.0-47.0); HGB - HEMOGLOBIN 13.8 g/dL (12.0-16.0); LYMPHOCYTES # (AUTO) 1.8 10^3/uL (1.5-3.5); LYMPHOCYTES % (AUTO) 26.2 %; MEAN CORPUSCULAR HEMOGLOBIN 29.5 pg (27.0-31.0); MEAN CORPUSCULAR HGB CONC 33.7 g/dL (32.0-36.0); MEAN CORPUSCULAR VOLUME 87.4 fL (81.0-99.0); MEAN PLATELET VOLUME 10.4 fL (7.9-10.8); MONOCYTES # (AUTO) 0.5 10^3/uL (0.0-1.0); MONOCYTES % (AUTO) 6.7 %; NEUTROPHILS # (AUTO) 4.2 10^3/uL (1.5-6.6); NEUTROPHILS % (AUTO) 63.2 %; PLT - PLATELET COUNT 307 10^3/uL (130-450); RED BLOOD COUNT 4.68 10^6/uL (4.20-5.40); RED CELL DISTRIBUTION WIDTH 12.9 % (12.0-15.0); WHITE BLOOD COUNT 6.7 x10^3/uL (4.8-10.8)
[2022-06-27 11:02] LABS: ALBUMIN/GLOBULIN RATIO 1.1 (1.0-2.2); BILIRUBIN,TOTAL 0.6 mg/dL (0.2-1.0); CALCIUM 9.6 mg/dL (8.5-10.3); CREATININE 0.7 mg/dL (0.4-1.0); POTASSIUM 4.1 mmol/L (3.5-5.0); TOTAL PROTEIN 7.6 g/dL (6.7-8.2)
[2022-06-27] MEDS ORDERED: CYCLOBENZAPRINE 10 MG TABLET PO STA (13:24)
--- NOTE | 2022-06-27 13:25 | ED Physician Documentation ---
PD HPI ABD PAIN - Stated complaint Stated Complaint: FEMALE - Chief complaint Chief Complaint: Abd Pain - History obtained from History obtained from: Patient, Family - Additional information Additional information: Relatively healthy 46-year-old woman with IUD in place presents with 2 days of back hip and hamstring pain only really notable when walking. If she is at rest pain is insignificant absent. When she tries to walk she feels like she has to walk bent over and basically has tightness in the hips and hamstrings if she tries to walk upright. Ibuprofen has been helpful. She denies vaginal bleeding or discharge, urinary complaints, changes in bowel movements, fevers or chills, nausea or vomiting. Review of Systems Constitutional: denies: Fever, Chills Ears: reports: Reviewed and negative Nose: reports: Reviewed and negative Throat: reports: Reviewed and negative Cardiac: reports: Reviewed and negative PD PAST MEDICAL HISTORY - Past Medical History Past Medical History: Yes - Past Surgical History Past Surgical History: No - Present Medications Home Medications: Ambulatory Orders Medication Instructions Recorded Confirmed HYDROcod/ACETAM 5/325 [[place] 5/325] 1 - 2 ea PO Q6H PRN #15 tablet 05/06/18 QUEtiapine [SEROquel] 150 mg ORAL BID 05/06/18 05/06/18 cephALEXin [Keflex] 500 mg PO QID #20 capsule 05/06/18 - Allergies Allergies/Adverse Reactions: Allergies Allergy/AdvReac Type Severity Reaction Status Date / Time No Known Drug Allergies Allergy Verified 06/27/22 10:29 - Social History Does the pt smoke?: No Smoking Status: Never smoker Does the pt drink ETOH?: No Does the pt have substance abuse?: No - Immunizations Immunizations are current?: Yes - POLST Patient has POLST: No PD ED PE NORMAL - Vitals Vital signs reviewed: Yes - General General: Alert and oriented X 3, No acute distress, Other (She is comfortable at rest. When she tries to walk she kind of walks hunched over.) - Abdomen Abdomen: Normal bowel sounds, Soft, Other (She may be just has a touch of right pelvic tenderness, very unimpressive.) - Back Back: No CVA TTP, No spinal TTP - Derm Derm: Normal color, Warm and dry - Extremities Extremities: No deformity (The right hamstring is tender and she has pain in the right hamstring with straight leg raise testing.), Other (The patient has equal and normal Achilles and patellar reflexes bilaterally. Normal sensation in all areas of the legs. Patient denies saddle anesthesia. Normal strength in flexion-extension at the ankles, knees, and flexion of the hips.) - Neuro Neuro: Alert and oriented X 3, Normal speech Eye Opening: Spontaneous Motor: Obeys Commands Verbal: Oriented GCS Score: 15 - Psych Psych: Normal mood, Normal affect Results - Vitals Vitals: Vital Signs - 24 hr 06/27/22 06/27/22 06/27/22 10:29 10:34 12:34 Temperature 36.6 C 36.6 C 36.7 C Heart Rate 65 65 62 Respiratory 18 18 18 Rate Blood Pressure 136/96 H 136/96 H 138/89 H O2 Saturation 100 100 99 06/27/22 14:00 Temperature Heart Rate 60 Respiratory 16 Rate Blood Pressure 130/80 O2 Saturation 100 Oxygen O2 Source Room air - Labs Labs: Laboratory Tests 06/27/22 06/27/22 06/27/22 10:46 10:46 10:55 WBC 6.7 RBC 4.68 Hgb 13.8 Hct 40.9 MCV 87.4 MCH 29.5 MCHC 33.7 RDW 12.9 Plt Count 307 MPV 10.4 Neut # (Auto) 4.2 Lymph # (Auto) 1.8 [place] # (Auto) 0.5 Eos # (Auto) 0.2 Baso # (Auto) 0.0 Absolute Nucleated RBC 0.00 Nucleated RBC % 0.0 Sodium 137 Potassium 4.1 Chloride 104 Carbon Dioxide 25 Anion Gap 8.0 BUN 17 Creatinine 0.7 Estimated GFR (MDRD) 89 Glucose 122 H Calcium 9.6 Total Bilirubin 0.6 AST 16 ALT 17 Alkaline Phosphatase 55 Total Protein 7.6 Albumin 4.0 Globulin 3.6 Albumin/Globulin Ratio 1.1 Lipase 31 Urine Color YELLOW Urine Clarity CLEAR Urine pH 7.5 Ur Specific Lafe 1.015 Urine Protein NEGATIVE Urine Glucose (UA) NEGATIVE Urine Ketones NEGATIVE Urine Occult Blood NEGATIVE Urine Nitrite NEGATIVE Urine Bilirubin NEGATIVE Urine Urobilinogen 0.2 (NORMAL) Ur Leukocyte Esterase NEGATIVE Ur Microscopic Review NOT INDICATED Urine Culture Comments NOT INDICATED Urine HCG, Qual NEGATIVE PD MEDICAL DECISION MAKING - ED course ED course: She presents with pelvic and hamstring pain that could be muscular, but there is also a pelvic component. She has a benign exam otherwise and is not and has normal blood work but with findings of bilateral ovarian cysts on ultrasound which could be causative. She declined Prescription pain medication. Understands the need for follow-up ultrasound. Departure - Departure Disposition: 01 Home, Self Care Clinical Impression: Pelvic pain in female Cyst of ovary Qualifiers: Laterality: bilateral Qualified Code(s): N83.201 - Unspecified ovarian cyst, right side Condition: Good Record reviewed to determine appropriate education?: Yes Instructions: ED Cyst Ovarian Comments: As discussed, it seems likely that the source of your pain causing you to feel like you need to hunch over while you walk is bilateral ovarian cysts. Blood work, urinalysis and test were all normal/negative. Some of the cysts, especially on the left were fairly large and you should probably have a repeat ultrasound to document resolution in about 6 weeks. This can be organized through your primary care physician or our women's clinic, the phone number is on this form. Return for new or worsening symptoms. Tylenol/ibuprofen as needed for pain. Discharge Date/Time: 06/27/22 14:38
[2022-06-27 13:37] LABS: BILIRUBIN,URINE NEGATIVE (NEGATIVE); GLUCOSE, URINE (UA) NEGATIVE (NEGATIVE); KETONES,URINE (UA) NEGATIVE (NEGATIVE); LEUKOCYTE ESTERASE, URINE NEGATIVE (NEGATIVE); NITRITE,URINE NEGATIVE (NEGATIVE); OCCULT BLOOD,URINE NEGATIVE (NEGATIVE); PH,URINE 7.5 PH (5.0-7.5); PROTEIN,URINE NEGATIVE (NEGATIVE); UROBILINOGEN,URINE 0.2 (NORMAL) E.U./dL (NORMAL)
[2022-06-27 13:41] LABS: HCG UR QUAL NEGATIVE
[2022-06-27 13:42] LABS: CLARITY,URINE CLEAR (CLEAR)
[2022-06-27 14:12] VITALS: BP 130/80
--- NOTE | 2022-06-27 14:31 | Ultrasound Report ---
PROCEDURE: Pelvic w/Transvag+Doppler Comp INDICATIONS: pelvic pain TECHNIQUE: Real-time scanning was performed of the pelvic organs, with image documentation. Additional endovagi nal scanning was necessary due to incomplete visualization of the adnexal and endometrial structures by transabdominal scanning. Doppler interrogation was performed of the ovaries bilaterally. COMPARISON: None. FINDINGS: No pathologic free abdominal or pelvic fluid. Uterus: Uterus is normal in size at 7.3 x 4 x 4.3 cm. The uterus is retroverted and demonstrates a h eterogeneous echotexture. The endometrium measures 4 mm in combined thickness and demonstrates a hete rogeneous appearance. An IUD is seen at the expected location. Nabothian cysts are incidentally noted , with the largest measuring 8 mm. Ovaries: The right ovary measures 3 x 2.3 x 2.9 cm, with a calculated volume of 10.5 cc and the left ovary measures 6.8 x 2.5 x 2.8 cm, with a calculated volume of 24.9 cc. The right ovary demonstrates a 2 cm simple cyst. The left ovary demonstrates simple cyst that measure up to 3.6 cm and up to 2.7 cm. There are less than 12 follicles seen on each side. No adnexal mass es are seen. Normal-appearing arterial waveforms are confirmed to each ovary. Other: No free pelvic fluid. IMPRESSION: A cause of acute pelvic pain is not seen. Negative for ovarian torsion. An IUD is seen at the expected location. Bilateral ovarian cysts are seen, with the largest seen on the left measuring 3.6 cm. In a patient of this age, this is most likely benign. However, please consider a follow-up pelvic ultrasound in 6 we eks to evaluate for resolution/improvement. Reviewed by: Bairon Polanco MD on 06/27/2022 1:30 PM [facility] Approved by: Bairon Polanco MD on 06/27/2022 1:30 PM JAY Station ID: [id number]
== END 2022-06-27 14:38 | disposition home or self-care (01) ==
LOC: ED 10:18
DX: N83.201 Unspecified ovarian cyst, right side (principal)
CPT/HCPCS: 36415; 76830; 76856; 80053; 81003; 81025; 83690; 85025; 93975; 99284; A9270; 81001; 87086

== ENCOUNTER 2023-03-07 18:28 | Outpatient (CLI) | payer BC ==
--- NOTE | 2023-03-08 12:35 | Ultrasound Report ---
PROCEDURE: Pelvic w/Transvaginal INDICATIONS: OVARIAN CYST TECHNIQUE: Real-time scanning was performed of the pelvic organs, with image documentation. Additional endovagi nal scanning was necessary due to incomplete visualization of the adnexal and endometrial structures by transabdominal scanning. COMPARISON: Pelvic ultrasound 06/27/2022 FINDINGS: Uterus: Uterus is retroverted and normal in size at 6.1 x 3.2 x 3.6 cm. The myometrium is homogeneo us. The endometrium measures 4 mm in combined thickness. An IUD is present in the uterine cavity. Ovaries: The right ovary measures 2.5 x 1.2 x 1.6 cm, with a calculated ovarian volume of 3 cc. The left ovary measures 2.3 x 1.5 x 1.7 cm, with a calculated ovarian volume of 3 cc. The ovaries have a normal sonographic appearance. Less than 12 follicles can be seen in each ovary. No adnexal giana s are seen. No cystic lesions measuring greater than 3 cm. Previously demonstrated ovarian cysts/foll icles no longer identified. Other: No pathologic free abdominal or pelvic fluid. IMPRESSION: No suspicious ovarian cyst/adnexal mass visualized. An IUD is present in the uterine cavity. Reviewed by: Perfecto Morton MD on 03/08/2023 12:34 PM PDT Approved by: Perfecto Morton MD on 03/08/2023 12:34 PM PDT Station ID: [id number]
== END 2023-03-07 18:29 | disposition home or self-care (01) ==
LOC: DI 18:28
PROVIDERS: ATTEND Obstetrics & Gynecology
DX: N83.292 Other ovarian cyst, left side (principal); Z97.5 Presence of (intrauterine) contraceptive device

== ENCOUNTER 2023-03-15 11:09 | Outpatient (CLI) | payer BC ==
--- NOTE | 2023-03-16 09:59 | Mammography Report ---
BILATERAL DIGITAL SCREENING MAMMOGRAM 3D/2D: 03/15/2023 CLINICAL: Routine screening. Comparison is made to exams dated: 07/28/2017 mammogram and 06/14/2014 mammogram - [facility]. There are scattered areas of fibroglandular density in both breasts (category b / 25%-50% glandular t issue). No significant masses, calcifications, or other findings are seen in either breast. There has been no significant interval change. IMPRESSION: NEGATIVE There is no mammographic evidence of malignancy. A 1 year screening mammogram is recommended. Based on the Tyrer Cuzick model (a risk assessment model) the patients lifetime risk is 13.3% and he r 10 year risk is 3.0%. According to the ACR, ACS, and NCCN guidelines, an annual breast MRI exam gen ng with mammogram is recommended if the patients lifetime risk is 20% or greater. This exam was interpreted at Station ID: [id number]. NOTE: For mammograms, a report in lay terms will be sent to the patient. Approximately 15% of breast malignancies will not be visualized mammographically. In the management of a palpable breast mass, a negative mammogram must not discourage biopsy of a clinically suspicious lesion. Electronically Signed By: Selvin sanford/saúl:03/15/2023 16:43:15 letter sent: No_Letter ACR BI-RADS Category 1: Negative 3341F PARENCHYMAL PATTERN: (A) - The breast(s) demonstrate(s) scattered fibroglandular densities. BI-RADS CATEGORY: (1) - 1 Mammogram [id number] 1 year screening LATERALITY: (B)
== END 2023-03-15 11:10 | disposition home or self-care (01) ==
LOC: DI 11:09
DX: Z12.31 Encounter for screening mammogram for malignant neoplasm of breast (principal)

== ENCOUNTER 2023-09-02 11:41 | Outpatient (CLI) | payer BC ==
--- NOTE | 2023-09-02 15:50 | XRAY Report ---
PROCEDURE: Chest 2 View X-Ray INDICATIONS: ACUTE COUGH TECHNIQUE: 2 views of the chest were acquired. COMPARISON: None. FINDINGS: Surgical changes and devices: None. Lungs and pleura: No pleural effusions or pneumothorax. Lungs are clear. Mediastinum: Mediastinal contours appear normal. Heart size is normal. Bones and chest wall: No suspicious bony lesions. Overlying soft tissues appear unremarkable. IMPRESSION: Chest without acute cardiopulmonary abnormalities or focal airspace disease. Reviewed by: Selvin Klein MD on 09/02/2023 3:49 PM [facility] Approved by: Selvin Klein MD on 09/02/2023 3:49 PM [facility] Station ID: [id number]
== END 2023-09-02 23:59 | disposition home or self-care (01) ==
LOC: DI.S 11:41
PROVIDERS: ATTEND Registered Nurse
DX: R05.1 Acute cough (principal)

== ENCOUNTER 2023-10-14 07:32 | Outpatient (CLI) | payer BC ==
[2023-10-14 07:48] LABS: BASOPHILS % (AUTO) 0.5 %; EOSINOPHILS # (AUTO) 0.3 10^3/uL (0.0-0.7); EOSINOPHILS % (AUTO) 5.3 %; HCT - HEMATOCRIT 39.3 % (37.0-47.0); HGB - HEMOGLOBIN 12.8 g/dL (12.0-16.0); LYMPHOCYTES # (AUTO) 2.1 10^3/uL (1.5-3.5); LYMPHOCYTES % (AUTO) 35.3 %; MEAN CORPUSCULAR HEMOGLOBIN 29.6 pg (27.0-31.0); MEAN CORPUSCULAR HGB CONC 32.6 g/dL (32.0-36.0); MEAN PLATELET VOLUME 10.3 fL (7.9-10.8); MONOCYTES # (AUTO) 0.4 10^3/uL (0.0-1.0); MONOCYTES % (AUTO) 6.3 %; NEUTROPHILS # (AUTO) 3.1 10^3/uL (1.5-6.6); NEUTROPHILS % (AUTO) 52.4 %; PLT - PLATELET COUNT 302 10^3/uL (130-450); RED BLOOD COUNT 4.32 10^6/uL (4.20-5.40); RED CELL DISTRIBUTION WIDTH 13.5 % (12.0-15.0); WHITE BLOOD COUNT 5.8 x10^3/uL (4.8-10.8)
[2023-10-14 08:07] LABS: ALBUMIN 4.3 g/dL (3.2-5.5); ALBUMIN/GLOBULIN RATIO 1.7 (1.0-2.2); ALKALINE PHOSPHATASE 54 IU/L (42-121); ALT ALANINE AMINOTRANSFERASE 25 IU/L (10-60); AST ASPARTATE AMINOTRANSFERASE 18 IU/L (10-42); BILIRUBIN,TOTAL 0.5 mg/dL (0.2-1.0); BUN - BLOOD UREA NITROGEN 13 mg/dL (6-20); CALCIUM 9.4 mg/dL (8.5-10.3); CARBON DIOXIDE - CO2 29 mmol/L (21-32); CHLORIDE 105 mmol/L (101-111); CHOL/HDL RATIO 4.2 (<4.4); CHOLESTEROL 222 mg/dL; CREATININE 0.7 mg/dL (0.6-1.3); GFR - MDRD 89 (>89); GLUCOSE 111 mg/dL (74-104); HDL CHOLESTEROL 53 mg/dL; LDL CHOLESTEROL,CALCULATED 139 mg/dL; LDL/HDL RATIO 2.6 (<4.4); POTASSIUM 4.1 mmol/L (3.5-4.5); SODIUM 140 mmol/L (135-145); TOTAL PROTEIN 6.8 g/dL (6.4-8.9); TRIGLYCERIDES 150 mg/dL (48-352); VLDL CHOLESTEROL 30 mg/dL
[2023-10-14 08:22] LABS: THYROID STIMULATING HORMONE 2.32 uIU/mL (0.34-5.60)
[2023-10-14 09:03] LABS: LITHIUM < 0.10 mmol/L
[2023-10-14 12:18] LABS: ESTIMATED AVERAGE GLUCOSE 114 mg/dL (70-100); HEMOGLOBIN A1c% 5.6 % (4.27-6.07)
== END 2023-10-14 07:33 | disposition home or self-care (01) ==
LOC: LAB 07:32
PROVIDERS: ATTEND Psychiatry & Neurology Psychiatry
DX: F31.78 Bipolar disorder, in full remission, most recent episode mixed (principal); Z51.81 Encounter for therapeutic drug level monitoring; Z79.899 Other long term (current) drug therapy
CPT/HCPCS: 36415; 80053; 80061; 80178; 83036; 83721; 84443; 85025

== ENCOUNTER 2023-10-19 17:14 | Outpatient (CLI) | payer BC ==
--- NOTE | 2023-10-20 13:02 | Ultrasound Report ---
PROCEDURE: Extremity Soft Tissue Limited INDICATIONS: CYSTIC OR SOILD TUMOR lump on foot TECHNIQUE: Real-time scanning was performed of the right foot, with image documentation. COMPARISON: None. FINDINGS: There are 2 grouped ovoid lesions in the subdermal subcutaneous tissues in the area of con cern, one is a simple cyst measuring 5 mm and the other immediately adjacent structure is ovoid avasc ular 9 mm thin-walled structure with heterogeneous internal echoes and an ill-defined tail of hypoech ogenicity extending towards the simple cyst and also deep towards the osseous structures. Technologis t indicates this to be in the region between the first and second metatarsal. No color Doppler flow w ithin these areas. Separate, more proximal and lateral, there is a simple cyst measuring 8 mm which also appears to have a connection deep to between the osseous structures. Technologist indicates this to be in the region of the proximal fifth metatarsal. IMPRESSION: 1. There are subdermal/subcutaneous fluid collections, all of which may connect to underlying joint s paces, and the distal two structures may connect to each other. Ganglion cysts are suspected. Differe ntial diagnosis includes tendinopathy, sebaceous cysts, hematoma, inclusion granulomas, less likely s olid lesions. For further clarification of anatomic relationship of these structures, MR imaging is r ecommended. Reviewed by: Nehal Barrios MD on 10/20/2023 1:01 PM PST Approved by: Nehal Barrios MD on 10/20/2023 1:01 PM PST Station ID: [id number]
== END 2023-10-19 17:15 | disposition home or self-care (01) ==
LOC: DI 17:14
PROVIDERS: ATTEND Internal Medicine
DX: R22.41 Localized swelling, mass and lump, right lower limb (principal); R93.6 Abnormal findings on diagnostic imaging of limbs; R93.89 Abnormal findings on diagnostic imaging of other specified body structures

== ENCOUNTER 2024-01-03 17:10 | Outpatient (CLI) | payer BC ==
--- NOTE | 2024-01-04 12:22 | XRAY Report ---
PROCEDURE: Finger(s) LT INDICATIONS: LT FINGER PX TECHNIQUE: AP hand, 2 views of the third finger(s) acquired. COMPARISON: None. FINDINGS: Bones: No fractures or dislocations. Osteoarthritic changes are noted throughout third PIP and DIP joints. No definite bony erosive changes. No suspicious bony lesions. Soft tissues: No suspicious soft tissue calcifications or masses. IMPRESSION: No acute bony abnormality. 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 No definite bony erosive changes. No gross soft tissue abnormalities. Reviewed by: Jose Gray MD on 01/04/2024 12:21 PM PDT Approved by: Jose Gray MD on 01/04/2024 12:21 PM PDT Station ID: [id number]
== END 2024-01-03 17:11 | disposition home or self-care (01) ==
LOC: DI 17:10
PROVIDERS: ATTEND Acupuncturist
DX: M19.042 Primary osteoarthritis, left hand (principal)